=== PATIENT | male | born 1985 | race African-American/Black ===

== ENCOUNTER 2020-01-19 20:11 | Emergency (ER) | payer OTHER, SELFPAY ==
--- NOTE | ~2020-01-19 | XR_ITS ---
EXAMINATION: XR chest 2V DATE: 01/19/2020 20:37 INDICATION: Shortness of breath TECHNIQUE: PA and lateral views of the chest are obtained. COMPARISON: None available FINDINGS: The lungs are free of acute opacities. There is no pleural effusion or pneumothorax. The ca rdiomediastinal silhouette is normal. The visualized bones and soft tissues are unremarkable. IMPRESSION: 1. No acute cardiopulmonary abnormality. Reviewed, dictated and finalized at location A.
[2020-01-19 20:14] VITALS: BP 167/83; PULSE 108; RESP 16; TEMP 36.3; O2SAT 99
--- NOTE | 2020-01-19 20:22 | ED.URI ---
HPI - URI/Sore Throat General Chief Complaint: Upper Respiratory Infection Stated Complaint: CP/SOB Time Seen by Provider: 01/19/20 20:19 Source: patient Mode of arrival: ambulatory Limitations: no limitations History of Present Illness HPI Narrative: Pt is a 34 y/o male who presents to the ED with c/o sudden SOB that started an hour ago while he was sitting down drinking a glass of wine. Pt states that his SOB is not bad now and he denies having any anxiety. Pt denies any aggravating or alleviating factors. He notes that he has had a sore throat for a couple of weeks and he is always sweating. Pt denies rhinorrhea, cough, mylagia, CP, back pain, or ABD pain. He denies recent domestic or foreign travel. He also denies in contact with anyone who has recently travelled. He does not have a H/O asthma. MD elicited complaint: other (SOB) Onset (ago): hour(s) (1) Consistency: improved Exacerbating factors: nothing Relieving factors: nothing Associated symptoms: sore throat and other (sweats) Review of Systems Review of Systems: All systems reviewed & are unremarkable except as noted in HPI and below Constitutional: Constitutional: Denies body ache(s) and Reports other (sweats) ENT: Reports sore throat and Denies other (rhinorrhea) Cardiovascular: Cardiovascular: Denies chest pain Respiratory: Respiratory: Denies cough and Reports dyspnea Gastrointestinal: Gastrointestinal: Denies abdominal pain Musculoskeletal: Musculoskeletal: Denies back pain Psychiatric: Psychiatric: Denies anxiety PMFSH Past Medical History Medical History (Updated 01/19/20 @ 22:14 by Elías Oakes MD) No significant past medical history Surgical History Surgical History (Updated 01/19/20 @ 20:45 by Emily Poe) No significant past surgical history Social History Social History (Updated 01/19/20 @ 20:45 by Emily Poe) Smoking status: Never smoker Exam Narrative: Exam Narrative: GENERAL: Well-appearing, well-nourished, and in no acute distress. HEAD: Normocephalic, atraumatic. ENT: Mucous membranes moist. No pharyngeal erythema or tonsillar exudate. NECK: Supple. CHEST: Clear to auscultation. No respiratory distress. HEART: Regular rate and rhythm. No murmur heard. Normal peripheral pulses. ABDOMEN: Soft, nontender, nondistended. EXTREMITIES: Normal range of motion. No edema. NEURO: Alert and oriented x3. PSYCH: Normal mood and affect. Course Course Emergency Course: Unremarkable evaluation. Heart rate 75 bpm at this time. Ambulated without hypoxia. No abnormal lung sounds. Discharge home. Vital Signs Vital signs: Vital Signs Temperature 97.4 F L 01/19/20 20:14 Pulse Rate 108 H 01/19/20 20:14 Respiratory Rate 16 01/19/20 20:14 Blood Pressure 167/83 H 01/19/20 20:14 Pulse Oximetry 99 01/19/20 20:14 Temperature 97.4 F L 01/19/20 20:14 Pulse Rate 108 H 01/19/20 20:14 Respiratory Rate 16 01/19/20 20:14 Blood Pressure 167/83 H 01/19/20 20:14 Pulse Oximetry 99 01/19/20 20:30 MDM - URI/Sore Throat Lab Data Result diagrams: 01/19/20 20:35 01/19/20 20:35 Labs: Lab Results 01/19/20 01/19/20 Range/Units 20:35 20:35 WBC 8.5 (4.5-10.0) K/mm3 RBC 5.11 (4.6-6.20) M/mm3 Hgb 15.1 (14.0-18.0) g/dL Hct 45.1 (42.0-52.0) % MCV 88.3 (80-100) fl MCH 29.5 (26-34) pg MCHC 33.5 (32-36) g/dl RDW 12.1 (11.5-14.5) % Plt Count 265 (150-375) k/mm3 MPV 9.8 (7.4-10.4) fl Immature Gran % (Auto) 0.4 (0-0.5) % Neut % (Auto) 43.8 L (45.5-73.1) % Lymph % (Auto) 49.0 H (18.3-44.2) % Orange % (Auto) 5.9 (2.6-8.5) % Eos % (Auto) 0.8 (0-4.4) % Baso % (Auto) 0.1 L (0.2-1.2) % Lymph # (Auto) 4.18 H (0.9-3.2) K/mm3 Orange # (Auto) 0.5 (0.1-0.6) K/mm3 Eos # (Auto) 0.1 (0-0.3) K/mm3 Baso # (Auto) 0.0 (0.0-0.1) K/mm3 Abs Immat Gran (auto) 0.03 (0.00-0.031) K/mm3 Absolute Neuts (auto) 3.7 (1.3-6
[2020-01-19 20:30] VITALS: O2SAT 99
[2020-01-19 20:40] LABS: Basophils Percent Auto 0.1 % (0.2-1.2); Eosinophils Absolute Auto 0.1 K/mm3 (0-0.3); Eosinophils Percent Auto 0.8 % (0-4.4); Hematocrit 45.1 % (42.0-52.0); Hemoglobin 15.1 g/dL (14.0-18.0); Immature Granulocyte Absolute 0.03 K/mm3 (0.00-0.031); Immature Granulocyte Percent A 0.4 % (0-0.5); Lymphocytes Absolute Auto 4.18 K/mm3 (0.9-3.2); Mean Corpuscular HGB Conc 33.5 g/dl (32-36); Mean Corpuscular Hemoglobin 29.5 pg (26-34); Mean Corpuscular Volume 88.3 fl (80-100); Mean Platelet Volume 9.8 fl (7.4-10.4); Monocytes Absolute Auto 0.5 K/mm3 (0.1-0.6); Monocytes Percent Auto 5.9 % (2.6-8.5); Neutrophils Absolute Auto 3.7 K/mm3 (1.3-6.7); Neutrophils Percent Auto 43.8 % (45.5-73.1); Platelet Count Result 265 k/mm3 (150-375); Red Blood Count 5.11 M/mm3 (4.6-6.20); Red Cell Distribution Width 12.1 % (11.5-14.5); White Blood Count 8.5 K/mm3 (4.5-10.0)
[2020-01-19 20:55] LABS: Alanine Aminotransferase 17 U/L (4-50); Albumin Level 4.7 g/dL (3.5-5.1); Alkaline Phosphatase 59 U/L (38-126); Aspartate Amino Transferase 24 U/L (17-59); Bilirubin,Total 0.5 mg/dL (0.2-1.3); Blood Urea Nitrogen 12 mg/dL (9-20); Calcium 9.2 mg/dL (8.4-10.2); Carbon Dioxide 26 mmol/L (22-30); Chloride 108 mmol/L (98-107); Estimated CRCL calculation 94 ml/min; Estimated Glomerular Filt Rate > 60; Glucose 133 mg/dL (75-110); Potassium 3.7 mmol/L (3.4-5.0); Sodium 139 mmol/L (137-145)
--- NOTE | 2020-01-19 21:40 | PC.NURSE ---
Patient ambulated with pulse ox, O2 saturations ranged from 97%-100%. Patient denied any shortness of breath.
[2020-01-19 22:28] VITALS: BP 134/74; PULSE 72; RESP 15; TEMP 36.7; O2SAT 98
== END 2020-01-19 22:30 | disposition home or self-care (01) ==
PROVIDERS: Emergency Provider Emergency Medicine
DX: J06.9 Acute upper respiratory infection, unspecified (principal); R06.00 Dyspnea, unspecified
CPT/HCPCS: 36415; 71046; 80053; 85025; 87081; 87804; 87880; 99283